=== PATIENT | female | born 1965 | race Hispanic/Latino ===

== ENCOUNTER 2017-10-04 12:58 | Outpatient (CLI) | payer BC ==
--- NOTE | 2017-10-04 14:33 | RAD ---
LEFT SHOULDER THREE VIEWS: History: Shoulder pain. Comparison: None. FINDINGS: No acute fracture or malalignment. The visualized ribs are unremarkable. Acromioclavicular alignment is normal. IMPRESSION: No acute abnormality. POS: RENETTA
== END 2017-10-04 12:59 | disposition home or self-care (01) ==
LOC: NAV RAD 12:58
PROVIDERS: ATTEND Nurse Practitioner Family
DX: M25.512 Pain in left shoulder (principal)

== ENCOUNTER 2018-05-08 15:19 | Outpatient (CLI) | payer BC ==
[~2018-05-08 15:19] MED LIST: Iopamidol 370 76% 100 ML VIAL ONE
--- NOTE | 2018-05-08 17:09 | CT ---
CT OF THE ABDOMEN AND PELVIS WITH IV CONTRAST 05/08/18 INDICATION: Right lower quadrant pain with fever. COMPARISON: Prior CT of the abdomen and pelvis without contrast dated 10/18/11. FINDINGS: There is a normal appendix in the right lower quadrant. No free fluid is evident. The bladder, rectum , and perirectal soft tissues are unremarkable appearing. There is a mild amount of retained stool wi thin the colon. The lung bases are clear. No focal hepatic lesion is evident. The pancreas, adrenal glands, and spleen appear within normal limits. There is some slight heterogene ous enhancement involving the right kidney. There is some mild periureteral inflammatory stranding in volving the right renal collecting system. 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 There are tiny hypodensities involving the left kidney that are too small to full y characterize. Mild scattered degenerative change. IMPRESSION: 1. Findings suspicious for right sided pyelonephritis. Recommend correlation with the clinical e xamination with urinary laboratory. There is inflammatory stranding seen surrounding the right ureter which can be seen with ascending urinary tract infection. 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 2. Other findings as above. POS: ALETHEA
== END 2018-05-08 15:20 | disposition home or self-care (01) ==
LOC: NAV CT 15:19
PROVIDERS: ATTEND Nurse Practitioner Family
DX: R10.31 Right lower quadrant pain (principal); K59.00 Constipation, unspecified; N28.89 Other specified disorders of kidney and ureter; M47.9 Spondylosis, unspecified
CPT/HCPCS: 74177; Q9967